=== PATIENT | male | born 1960 | race Caucasian/White ===

== ENCOUNTER 2021-04-02 00:35 | Inpatient (IN) | payer OTHER ==
[~2021-04-02] VITALS: Ht 172.7 cm; Wt 59.6 kg
[2021-04-03 05:01] VITALS: BP 102/68
--- NOTE | 2021-04-03 05:05 | NUR ---
Assumed care of pt from ED at 0440. Pt came to unit from ED via gurney et ambulated to bed with slightly unsteady gait. Pt c/o soreness in right arm but no noticeable discoloration noted to area of pain. Security reports that pt was given injection in ED et may be complaining of pain from the injection sight. Pt calm et cooperative but anxious upon admission to unit. VSWNL. Health assessment with no abnormalities noted at present time. Hospitalist BUSINESS OFFICE ASSISTANT notified of admission to unit. Will notify physician economic analysis director for orders. Pt oriented to room but wanted to sleep so did not orient to unit at this time. ED reports that client became agitated while down in the ED et had to have two injections of Haldol. Pt being admitted from [facility] after being brought to their ED from home with guardian due to increased confusion et agitation from dementia. Needing to be placed into LTC unit. Currently resting in bed with eyes closed. Will continue to monitor per unit protocol.
[2021-04-03 07:45] LABS: CHOLESTEROL 173 mg/dL (<200); HDL CHOLESTEROL 48 mg/dL (>40); LDL CHOLESTEROL 97 mg/dL (<100); TC:HDL 3.6 Ratio (Not establshd); TRIGLYCERIDE 140 mg/dL (<150); VLDL 28 mg/dL (<40)
[2021-04-03 08:50] VITALS: BP 102/68
[2021-04-03 09:44] VITALS: BP 102/68
[2021-04-03 10:08] LABS: ANION GAP 13 mmol/L (7-16); BUN 14 mg/dL (7-18); CALCIUM 8.8 mg/dL (8.5-10.1); CHLORIDE 101 mmol/L (98-107); CO2 27 mmol/L (21-32); GLUCOSE 106 mg/dL (74-106); POTASSIUM 3.3 mmol/L (3.5-5.1); SODIUM 141 mmol/L (136-145)
[2021-04-03 10:58] VITALS: BP 102/68
--- NOTE | 2021-04-03 12:35 | NUR ---
RESUMMED CARE FROM OVERNIGHT SHIFT THIS AM, PATIENT CONFUSED ALERT TO SELF ONLY. PATIENT WAS ASKING WHERE HE WAS I TOLD HIM HE IS IN A HOSPITAL. PATIENT REFUSED HIS AM MEDICATION DR LOPEZ NOTIFIED. PATIENTS ABDOMEN SOFT BOWEL SOUNDS PRESENT; PATIENTS LUNGS CLEAR. PATIENT HAS A ROTTEN BACK MOLAR IN MOUTH WHICH HE IS COMPLAING ABOUT. PATIENT GIVEN TYLENOL 650 MG FOR PAIN PATIENT DENIES SI/HI/AH/VH AT PRESENT. PATIENT DOES TALK WITH OTHER PATIENT AT TIMES, PATIENT MET WITH DR LOPEZ AND ANITRA. PATIENT HAS NOT DISPLAYED ANY BEHAVIORS; WILL CONTINUE TO MONITOR PATIENT FOR SAFETY AND BEHAVIORS.
[2021-04-03 14:42] LABS: HEMATOCRIT 42.9 % (42.0-52.0); HEMOGLOBIN 14.1 gm/dL (14.0-18.0); MCH 27.3 pg (26.0-34.0); MCV 82.8 fL (80.0-100.0); RBC 5.18 mil/uL (4.50-6.00); RDW 13.7 % (10.5-14.5)
--- NOTE | 2021-04-03 15:39 | NUR ---
Meeting with patient, OLAYINKA and Dr. Marr. Patient was confused and had difficulty being directed to the office. Patient reports to not knowing where he is currently. Patient was asked about his daughter. Patient appeared to be confused but did shake his head in agreement once her name, Yumiko, was mentioned. Patient doesn't remember where he was born. He states he had one older brother.
[2021-04-03 19:44] VITALS: BP 106/67
--- NOTE | 2021-04-04 05:10 | NUR ---
Assumed care of pt at 1900. Pt calm et cooperative this shift. Took medications whole without difficulty. Ambulates the halls ad leno with steady gait. VSWNL. Health assessment with no abnormalities noted at present time. Denies SI/HI at present time. Socialized with peers in dayroom watching TV until HS. Currently resting in bed with eyes closed. Will continue to monitor per unit protocol.
[2021-04-04 08:08] LABS: GLYCOHEMOGLOBIN (HGB A1C) 5.8 % (4.8-5.6)
[2021-04-04 10:04] VITALS: BP 116/79
--- NOTE | 2021-04-04 12:19 | NUR ---
RESUMMED CARE FROM OVERNIGHT SHIFT THIS AM PATIENT IN DAY ROOM SITTING QUIET. PATIENT ATE BREAKFAST TOOK MEDICATION WITHOUT INCIDENCE. PATIENT IS ALERT TO SELF ONLY AND IS VERY CONFUSED. HIS DAUGHTER CALLED TO CHECK ON THE PATIENT AND ASKED TO SPEAK TO HER DAD. PATIENT BEGAN TO GET UPSET BECAUSE HE WANTS TO GO WITH DAUGHTER. I EXPLAINED TO DAUGHTER JUST ASK TO TALK WITH THE NURSE FOR UPDATES. DUE TO PATIENT GETTING UPSET PATIENTS DOES NOT UNDERSTAND WHEN YOU ASK HIM ABOUT SI/HI/AH/VH AT PRESENT. PATIENT IS SO CONFUSED WHEN TAKING HIM TO USE THE BATHROOM. PATIENT DID NOT UNDERSTAND HE HAD TO PULL PANTS DOWN TO USE THE BATHROOM. PATIENTS ABDOMEN SOFT BOWEL SOUNDS PRESENT LUNGS CLEAR; PATIENT AT TIMES WANDERS AROUND IN THE DAY ROOM. PATIENT HAS NOT DISPLAYED ANY AGGRESSION WILL CONTINUE TO MONITOR PATIENT FOR SAFETY AND BEHAVIORS.
--- NOTE | 2021-04-04 12:30 | H ---
[facility] [place] [address] HISTORY AND PHYSICAL Name: CHRISTIE BATEMAN Room #: 520B-B ADM IN M.R.#: [id number] Admission: 04/03/21 Attend Phys: Liborio Marr DO Discharge: Date of : 60 Report #: [id number] THIS REPORT FOR: cc: NO FAMILY PHYSICIAN or PCP NO FAMILY PHYSICIAN or PCP Liborio Marr DO ~ DATE OF SERVICE: 04/03/2021 INPATIENT GERIATRIC PSYCHIATRIC EVALUATION ATTENDING PSYCHIATRIST: Liborio Marr DO MEDICAL CONSULTANTS: Rajwinder Gould APRN and Liborio Doyle MD from our Hospitalist Service. REASON FOR ADMISSION: The patient transferred from [facility] for progressive dementia, continued impulsivity and agitation, requiring geriatric psychiatry stabilization. SOURCES OF INFORMATION: Telephone conversation with his court-appointed guardian and conservator who is his daughter, Yumiko Aldana; records from [facility]; records here at [facility] and my chair side interview. CHIEF COMPLAINT: Unspecified. HISTORY OF PRESENT ILLNESS: This is a 61-year-old, appearing disheveled, malnourished male. The patient was transferred from [facility] yesterday. As best I can tell, his date of admission there was 03/31/2021. The patient was brought there due to chronic progressive dementia, unable to be cared for at home. He was referred from his primary care physician's office. The patient was seen by a psychiatrist at [facility], it appears to be a telepsychiatrist, so they could have been seeing them from away. In any event, the patient was talking to himself, responding to voices, playing the TV very loudly. His nurse reports he is active and agitated, so they wanted to get something for him. To the telepsychiatrist, the patient states, "what the hell is going on," he is having a great deal of trouble, hallucinating at times, talking nonsense, oriented to self, not sure where he is, not sure of his medical condition. He stated, "it is the damn dog." According to his daughter, she has documentation of 04/2018 and dementia was diagnosed, but she believes it dates back to 6-7 years. Apparently around 6-7 years ago, he was fired from multiple jobs. Denies smoking, alcohol, marijuana, or recreational drug use history. No hard drugs like cocaine and meth, heroin. born and raised in [place], high school graduate, and , he then had his girlfriend of 24 years who is one who dropped him [facility] [address] [place] [address] HISTORY AND PHYSICAL Name: CHRISTIE BATEMAN Room #: 520B-B ADM IN M.R.#: [id number] Admission: 04/03/21 Attend Phys: Liborio Marr DO Discharge: Date of : 60 Report #: [id number] off at his daughter's around 03/18/2021. He is disabled, retired now. No legal history. No access to firearms. MEDICATIONS AT HOME: Zolpidem, donepezil, memantine, Senna, and docusate. Seems like at [facility], they gave him 10 mg at bedtime of olanzapine and then they added 2.5 mg in the morning for agitation, ADDITIONAL INFORMATION FROM [facility]: SARS-CoV-2 was negative. Toxicology screen was negative. Urine showed small bilirubin, 15 ketones, it is from 03/31. Also on 03/31, sodium 136, potassium 4.3, chloride 102, bicarbonate 27, anion gap 11, BUN 15, creatinine 1.1, GFR 72, glucose 102, calcium 9.0, corrected calcium 9.5, total bilirubin 0.5, AST 30, ALT 59, alkaline phosphatase 88. Total protein 7.8, albumin 3.4. White count 10.8, H and H 14.0 and 42.2, platelet count 375. Absolute neutrophil count was high at 8.1. Acetaminophen negative. Alcohol negative. I actually do not see an EKG from [facility], so I ordered one. I did note a CT head in the ED negative for acute abnormalities. Most likely, they ordered RPR and HIV. Sheila Ignacio considered him incapacitated, looks like she was the resident. I see there are some additional laboratories posted. B12 level was high at 1145. I do not see an HIV, RPR, it says see history, but I do not see the results, but an RPR was nonreactive. I do not think this patient is high enough risk to tram down the formal HIV result and he is so demented that I do not think there would be any type of treatment if a reversible cause was found. B12 level 907. TSH 1.356. Sodium 141. We did repeat labs here at [facility], potassium 3.3, chloride 101, bicarbonate 27, anion gap 13, BUN 14, creatinine 1.0, estimated GFR 76, glucose 106, calcium 8.8, triglycerides 140, cholesterol 173, LDL 97, HDL 48. ADDITIONAL INFORMATION: The patient has an older son named, Diego, works in [employer]. Daughter has requested we take a look at broken molar, I explained to her we do not have hospital dentistry at [facility] so this would have to wait and we can only treat symptoms. . The patient is down 17 pounds from last month. He does not want to shower. Daughter is upset that he has never verbalized how bad it got, "they are not taking me to the doctor regularly." The patient had a hernia in 2021. I am unclear if it was reduced manually or he had a herniorrhaphy. [place] Medicaid pending. No history of previous long-term. He was COVID positive in February. Daughter says [facility] is interested. [facility] have dneied patient. Daughter resides in [place], [place], is a after school program coordinator with a law firm. Christie gets $2143 dollars a month from disability. Born and raised in [place], [place]. Two brothers, one in [facility] is the oldest. The younger brother, Jose Alfredo, is in [place]. The patient worked at a [employer] company. No history of [facility] [address] [place] [address] HISTORY AND PHYSICAL Name: CHRISTIE BATEMAN Room #: 520B-B ADM IN M.R.#: [id number] Admission: 04/03/21 Attend Phys: Liborio Marr, Discharge: Date of : 60 Report #: [id number] history. No history of being subject to physical or sexual abuse. No history of violence. The daughter brought up that the patient has pain in his mouth. He does have a broken lower right molar from my insepction. I explained we do not have a hospital dentist here, we can treat some of the symptoms, but extraction or definitive care will have to be planned after discharge. PHYSICAL EXAMINATION: VITAL SIGNS: Temperature 36.5, pulse 78, respirations 16, BP 102/68. GENERAL: Well-developed, ill-appearing, malnourished, male. MENTAL STATUS EXAMINATION: Well-developed male. Attention and concentration limited. Speech soft, slow. Thought process linear, very limited. Thought content poverty of thought. Denied suicidal or homicidal ideation. No auditory, visual, or tactile hallucinations. Denied hopelessness, helplessness. Memory noted to be impaired, not formally tested. Insight and judgment quite impaired. Fund of knowledge well below normal. Mood and affect is constricted, congruent, diminished range. FORMULATION: A 61-year-old male transferred from [facility] Medical Unit due to need for further stabilization of symptoms of dementia and assistance with placement. PLAN: Admitted by guardian to [facility] to evaluate, stabilize, obtain collateral. At this time, regarding medications, he is on donepezil 10 mg at bedtime, memantine 10 mg p.o. daily. I am going to go ahead and discontinue the donepezil due to his significant weight loss. Keep him on 10 mg of memantine for now. In addition, he is on senna 2 tabs daily, which is fine, otherwise p.r.n. Zofran, Mylanta, Cepacol and acetaminophen, those were PRNs. May go ahead and start him on olanzapine 5 mg p.o. b.i.d. for general impulsivity measures. We will go ahead and start it tonight. We will see how he does the next several days. ESTIMATED LENGTH OF STAY: 10-14 days. STRENGTHS: He has a guardian/conservator and is insured. WEAKNESSES: Advanced dementia, needing placement. [facility] [address] [place] [address] HISTORY AND PHYSICAL Name: CHRISTIE BATEMAN Room #: 520B-B ADM IN M.R.#: [id number] Admission: 04/03/21 Attend Phys: Liborio Marr DO Discharge: Date of : 60 Report #: [id number] Time spent on this case is greater than 60 minutes, greater than 50% of time spent in review of records and coordination of care. <ELECTRONICALLY SIGNED> By: Liborio Marr DO 04/04/21 1230 1210 1246 Liborio Marr DO /nt
--- NOTE | 2021-04-05 05:59 | NUR ---
Assumed care of pt at 1900. Pt calm et cooperative most of shift. Became quite agitated et tearful after phone call with daughter et was very difficult to redirect. Previous shift reported that pt has been increasingly agitated et aggressive following phone calls with family members et that the nurse had told family members that he was doing so et advised that they not call to speak with pt but can get reports on how pt is doing from nursing. Pt had to have PRN IM injection of Haldol for aggressive behavior on previous shift. Took medications without difficulty. Ambulates the halls ad leno with steady gait. VSWNL. Health assessment with no abnormalities noted at present time. Denies SI/HI at present time. Currently resting in bed with eyes closed. Will continue to monitor per unit protocol.
[2021-04-05 09:42] VITALS: BP 108/58
--- NOTE | 2021-04-05 17:11 | NUR ---
ORIENTED TO NAME ONLY. HAS BEEN RESTLESS AND INTRUSIVE MAJORITY OF SHIFT-APPEARS UNABLE TO SIT STILL FOR ANY EXTENDED PERIOD OF TIME AND HAS EATEN POORLY A RESULT OF THIS-STAFF HAVE REDIRECTED HIM TO SIT AT TABLE MULTIPLE TIMES BUT APPEARS UNABLE TOFOLLOW VERBAL COMMANDS.CONVERSATION MOSTLY INCOHERENT-DISORGANIZED. HAS BEEN INCONTINENT OF KIRIT X3 SO FAR TODAY AND DOES CURSE AND ATTEMPT TO GRAB STAFFS ARM AND TWIST WITH INCONTINENT CARE-WHEN TAKEN TO TOILET Q1-2 HOURS WILL ALLOW STAFF TO WALK HIM TO BATHROOM BUT BECOMES AGITATED AND RESISTIVE WHEN STAFF ASK HIM TO PULL DOWN PANTS OR SIT. HAS BEEN ENTERING PEERS ROOOMS AND SO FAR HAS REDIRECTED OUT OF ROOMS WITHOUT PHYSICAL AGGRESSION. EATING POORLY-WILL TAKE 1-2 BITES AT A TIME BEFORE WALKING AWAY AND STATING HE DOESN'T WANT ANYMORE. SPIT OUT WHOLE PILLS SO MEDS CHANGED TO CRUSH AND WILL TAKE IN ICE CREAM
[2021-04-05 20:20] VITALS: BP 108/58
--- NOTE | 2021-04-05 23:57 | NUR ---
PATIENT IS VERY RESTLESS TONIGHT. AT BEGINNING OF SHIFT PATIENT WAS HIGHLY ANXIOUS AND CRYING OFF AND ON. HE RAMBLES WHEN HE TALKS AND DOES NOT MAKE COHERENT CONVERSATION. HE PACES THE HALLS AND WALKS INTO OTHER RESIDENTS ROOMS. ATIVAN ORDER ONE TIME GIVEN AT END OF DAY SHIFT. PATIENT IS INCONTINENT AND DOES NOT GET THE CONCEPT OF VOIDING IN THE TOILET OR URINAL. HE HAS URINATED 2 OR 3 TIMES IN HIS ROOM, ANOTHER RESIDENT'S ROOM AND HIS BATHROOM FLOOR AND HALLWAY. AREAS MOPPED UP AND PATIENT CLEANED AND CHANGED INTO NEW CLOTHES. PATIENT STAYS IN HIS BED FOR A LITTLE BIT AND THEN IS UP AGAIN AND PACING. HIS ANXIETY HAS SEEMED TO CALM SOME AT THIS POINT. PATIENT BACK IN BED. BED IN LOW POSITON AND BED ALARM IS ON. ROUTINE ROUNDS TO ASSESS SAFETY AND STATUS OF PATIENT. MEDS GIVEN IN ICECREAM TONIGHT.
--- NOTE | 2021-04-06 05:22 | NUR ---
PATIENT HAS BEEN UP AND DOWN ALL NIGHT. WANDERING IN ROOM, [place]OMAS WAYS, AND SITTING IN DINING ROOM. EASILY REDIRECTABLE. PATIENT KEEPS REMOVING HIS YELLOW SOCKS AND STAFF KEEP PUTTING BACK ON AND PT TAKES OFF AGAIN. CLOSE SUPERVISION TO MAKE SURE PATIENT STAYS OUT OF OTHER PATIENT'S ROOMS. PATIENT TALKS CONSTANTLY. PT IS SEXUALLY INAPPROPRIATE AND HAS TRIED GROPING AND TOUCHING FEMALE STAFF. CONTINUING TO MONITOR.
--- NOTE | 2021-04-06 06:22 | NUR ---
PT CAME TO NURSE STATING HIS TOOTH WAS HURTING. HE WAS CRYING FOR A FEW SECONDS. RIGHT BACK AMADOR. TYLENOL 650MG PO GIVEN FOR PAIN CRUSHED IN PUDDING. PATIENT DRANK A CUP OF WATER. PATIENT SLEPT 1 HOUR LAST NIGHT. PT PACING IN DAY ROOM.
[2021-04-06 06:28] VITALS: BP 120/86
--- NOTE | 2021-04-06 11:30 | NUR ---
Message left with emergent legal guardian, Yumiko Aldana, to call the unit as soon as she received the message to notify her of patient testing positive for Covid.
[2021-04-06 12:27] VITALS: BP 120/80
--- NOTE | 2021-04-06 13:26 | NUR ---
RESUMMED CARE FROM OVERNIGHT SHIFT THIS AM, PATIENT IN DAY ROOM WANDERING. PATIENT ATE BREAKFAST TOOK MEDICATION WITHOUT INCIDENCE; PATIENT ALERT ORIENTED TO SELF ONLY. PATIENT HAS CONFUSION AND HAS TANGENTIAL THINKING, PATIENT UNABLE TO TELL RADHA ABOUT SI/HI/AH/VH DUE TO CONFUSION. PATIENTS ABDOMEN SOFT BOWEL SOUNDS PRESENT PATIENTS LUNGS CLEAR. PATIENT HAD TO GET AN I AM OF GEODON 20MG FOR KICKING AND HITTING STAFF WHILE GETTING COVID TEST. PATIENT IS RESTING COMFORTABLY WILL CONTINUE TO MONITOR PATIENT FOR SAFETY AND BEHAVIORS.
--- NOTE | 2021-04-06 16:40 | NUR ---
Email received from guardianYumiko, requesting referral for patient be faxed to [facility] ([phone])
[2021-04-06 19:48] VITALS: BP 117/65
[2021-04-06 20:38] VITALS: BP 117/65
--- NOTE | 2021-04-06 20:59 | NUR ---
RESUMMED CARE FROM DAY SHIFT THIS EVENING PATIENT SITTING IN DAY ROOM TALKING TO SELF. PATIENT NOT ABLE TO TELL ME ABOUT SI/HI/AH/VH DUE TO COGNITIVE DO OF BRAIN. PATIENTS ABDOMEN SOFT BOWEL SOUNDS PRESENT PATIENTS LUNGS CLEAR. PATIENT IS VERY CONFUSED AND IS HAVING DELUSIONS HE RAMBLES WHEN SPEAKING AND NOT MAKING SENSE. HIS DAUGHTER CALLED AND THE PATIENT STARTED CRYING AND BECOMING AGITATED. I TOLD DAUGHTER NOT TO CALL AND SPEAK WITH PATIENT IT UPSETS HIM. I STATED TO HER TO CALL AND SPEAK WITH NURSE ABOUT PATIENTS STATUS. PATIENT TOOK MEDICATION CRUSHED IN YOGART PATIENT IS SLEEPING IN LINDSEY CHAIR. WILL CONTINUE TO MONITOR PATIENT FOR SAFETY AND BEHAVIORS.
--- NOTE | 2021-04-07 08:46 | NUR ---
Phone call to patient's daughter, Yumiko Nico OLIVARES
--- NOTE | 2021-04-07 10:09 | NUR ---
Alert and orientated to name only. Denies SI/HI. Rambling, confused speech at times, sometimes coherent. No speech or behavior suggestive of SI/HI. Breath sounds clear. Reg HR auscultated. Color pink with brisk capillary refill and palpable peripheral pulses. No edema noted. Active bowel sounds over soft, flat abdomen. Incontinent of yellow urine and smear of stool. Compliant with meds this AM, given crushed in pudding. Ate rest of pudding when fed. Sitting in recliner with chair alarm placed.
--- NOTE | 2021-04-07 17:40 | NUR ---
MACHINING SUPERVISOR paged MD Marr in regards to a PRN for patient. BRIDGET Lynch asked for order. Order was recieved and placed for a ONETIME 1mg Ativan PO @2770
[2021-04-07 19:35] VITALS: BP 117/65
--- NOTE | 2021-04-08 03:29 | NUR ---
PATIENT CARE WAS RESUMED AT 1900. HE IS AWAKE SITTING AT THE DININIG AREA ON THE RECLINER. HE TOOK HIS MEDS WITH ICE CREAME. DENIES PAINS/SI/AVH/HI. HE IS INCONTINENT OF BOWEL AND BLADDER. HE IS A MAX ASSIST [facility] CARE AND TRANSFER. ROBLES CARE WAS PROVIDED.BED IS LOW, LOCKED AND ALARMED.[id number] CHECK ONGOING.
[2021-04-08 10:08] VITALS: BP 137/74
--- NOTE | 2021-04-08 13:06 | NUR ---
NOTED TO BE SOMULENT THROUGHOUT AM/EARLY PM-AM MEDICATIONS/BREAKFAST NOT GIVEN D/T INABILITY TO SWALLOW IN A SAFE MANNER AT THIS TIME. IS RESPONSIVE TO VERBAL STIMULI AND RESOND BUT RESPONSES ARE SLURRED/MUFFLED D/T CHIN IN CHEST POSTURE. VS STABLE-INCONTINENT CARE PROVIDED
--- NOTE | 2021-04-08 14:02 | NUR ---
AWAKE AND INCREASINGLY RESTLESS STARTING AT APPROX 1330-ASSISTED TO TOILET AND NOTED TO HAVE SIGNIFICANT ATAXIA-STUMBLING AND WOULD HAVE FALLEN SEVERAL TIMES HAD STAFF NOT BEEN AT HIS SIDE-HAS BEEN ATTEMPTING TO GET UP AN WALK ON OWN.02 SAT ON RA 90 PERCENT INITIALLY-DID INCREASE TO 93AFTER MOVING WALKING TO BATHROOM AND BACK.ORIENTED TO NAME ONLY.RESISITIVE WITH INCONTINENT CARE AND BRIEF CHANGE. APPETITE POOR-REQUIRES TOTAL ASSIST WITH ALL ADLS
--- NOTE | 2021-04-08 16:51 | NUR ---
No updates to report on patient. Placement is continuing to be sought.
[2021-04-08 19:22] VITALS: BP 110/79
--- NOTE | 2021-04-08 22:04 | NUR ---
At onset of hotel night auditor pt was sitting in óscar chair in day room. Pt appeared calm at this time. This shift pt was alert and oriented only to self. Pt is confused, delusional, disorganized and hallucinates. Pt's speech is nonsensical and pt cannot answer most questions appropriately. Pt was med compliant with meds mixed in ice cream. Pt spoke with his daughter and his mother over the phone. Pt becomes tearful when speaking with family, but was able to calm down afterwards. Pt does not talk for long as he cannot use the phone appropriately and will sit the phone down while the other person is still talking. Pt stated to this nurse that he wanted to her. Pt made other delusional statements. Pt is unsteady on his feet and is assisted when ambulating and is utilizing a óscar chair while awake in day room. Fall precautions are in place. Will continue to monitor. RN spoke with daughter Yumiko over the phone. Yumiko wanted an updated med list, which RN provided. Yumiko told this RN that pt likes apple juice. Pt ate an entire ice cream, but only drank about 3 ounces of apple juice when offered. Pt would not drink water.
[2021-04-09 09:26] VITALS: BP 135/56
--- NOTE | 2021-04-09 14:39 | NUR ---
Assumed patient at 0700, patient is alert and oriented to person, did not eat much or drink much, but a few bites for breakfast and lunch. Patient is talking to himself. Sat up in the óscar chair most of the day. Taking crush medication in applesauce. Will continous to monitoring.
--- NOTE | 2021-04-09 16:04 | NUR ---
Phone call to [facility] for status update - Voice message.
--- NOTE | 2021-04-09 16:25 | NUR ---
Phone call to Yumiko miranda - Voice message
[2021-04-09 19:50] VITALS: BP 135/56
--- NOTE | 2021-04-10 00:28 | NUR ---
[facility] HE WAS SITTING AT THE DINING AREA ON THE TABLE. HE IS AWAKE AND CONFUSED, LUNGS ARE CLEAR AND BOWEL SOUND ACTIVE X 4 QUADS. HE IS INCONTINENT OF BOWEL AND BLADDER. DENIES PAINS/SI/AVH/HI. HE TOOK HIS MEDS WHOLE. AMBULATES WITH LINDSEY-CHAIR. MAX ASSIST WITH ROBLES CARE. BED IS LOW, LOCKED AND ALARMED. YELLOW TOPS AND SOCKS ARE ON, Q12 MINUTES CHECK ONGONIG.
[2021-04-10 09:38] VITALS: BP 101/56
--- NOTE | 2021-04-10 12:32 | NUR ---
REQUIRES TOTAL CARE WITH ALL ADLS-ATE WELL AT BREAKFAST CONSUMING 50-75 PERCENT -REQUIRED MULTIPLE REAPPROACHES -REATTTEMPTS WOULD STOP OPENING MOUTH AFTER 1-2 BITES. GAIT VERY UNSTEADY THIS RN ATTEMPTED TO AMBULATE FROM HALLWAY TO ROOM TO USE TOILET AND WAS NOTED TO BE FALLING BACKWARD OR TO SIDE-KEEPING LEGS BENT.ORIENTED TO NAME ONLY-APPEARS TO BE HAVING VISUAL HALLUCINATIONS STATING AT LUNCH HE SAW A BUG ON THE FLOOR AND IT IS UNDER HIS CHAIR NOW.RESTLESS,ATTEMPTING TO GET UP SEVERALTIMES ON OWN.RESISTIVE WITH BRIEF CHANGE -REQUIRES 3 STAFF TO ASSIST
--- NOTE | 2021-04-10 15:01 | NUR ---
INCREASED RESTLESSNESS STARTING APPROX 1430- RESTLESS ,MULTIPLE ATTEMPTS TO STAND ON OWN. CONVERSATION FRAGMENTED-MOSTLY INCOHERENT. ATE POORLY AT LUNCH BUT DID TAKE ICE CREAM AND PUDDING AT 1400 WITH 1300/1500 MEDICATIONS. NOTED TO BE GRIMACING AND RUBBING BACK IF IN PAIN-WHEN ASKED STATES YES-UNABLE TO RATE. TYLENOL 2 TABS PO PRN AT 1300 WITH NO NOTED RESPONCE-HAS BEEN TOILET Q 1-2 AND IS RESISITVE EVERY TIME WITH PANTS BEING PULLED DOWN AND SITTING ON TOILET. BECOMES ANGRY WITH STAFF "WHY ARE DOING THAT" AND STRIKES OUT OR PULLS AWAY. HAS BEEN INCONTINENT OF STOOL AND URINE X3 SO FAR TODAY. IS NOTED TO HAVE SUPERFICIAL SCRATCH TO BUTTOCKS AND SLIGHT REDNESS TO SURROUNDING TISSUE HAS BEEN SCRATCHING AREA WITH FINGERNAILS-AREA CLEANSED WITH MUCH RESISTANCE AND BARRIER CREAM APPLIED. AT 1500 BEGINS TO CRY-UNABLE TO STATE WHY-PLACED IN BED-POSITIONED FOR COMFORT AND RN AT BEDSIDE APPEARS COMFORTED TO HAVE SOMEONE WITH HIM-RESTLESS TOSSING IN BED FOR 30-40 MINUTES BEFORE FALLING ASLEEPP. BED ALARM ON
--- NOTE | 2021-04-10 16:40 | NUR ---
Phone communication with Yumiko. Yumiko reports guardianship was granted at the court hearing on . Yumiko has attempted to look for placement for the patient. She reports [facility] did not receive the referral. She provided the phone number for [facility] ([phone]). The worker will refax the referral. Yumiko will also send the listing of homes that she has contacted for placement.
--- NOTE | 2021-04-10 18:42 | NUR ---
DID REST FROM APPROX 1530/1700 IN BED-DID WAKEN WITH VERBAL QUING AND ATE A FEW BITES OF SUPPER-INCONTIENT CARE PROVIDED AND WAS RESISTIVE WITH THIS GRABBING STAFFS WRIST AND PUSHING IT BACK,SCRATCHED STAFFS HAND-IS NOTED TO HAVE SMALL EXCORIATED AREA TO MIDLINE COCYX-BARRIER CREAM APPLIED . IS TEARFUL CRYING OUT FOR MOTHER AND FATHER-HALLUCINATING SEEING [employer] [employer]-CARRYING ON CONVERSATION WITH UNSEEN OTHERS. INCREASED TEARFULNESS AND ANXIETY WHEN STAFF LEAVE BEDSIDE
[2021-04-10 19:15] VITALS: BP 137/94
--- NOTE | 2021-04-11 00:33 | NUR ---
PATIENT CARE WAS RESUMED AT 1900. HE WAS SITTING IN THE DAY AREA ON A RECLINER. HE IS CONFUSSED. HE DENIES PAINS,SI/AVH/HI, HE IS INCONTINENT OF BOWEL AND BLADDER.MAX ASSIST WITH CARE. ABLE TO VERBALIZE SOME NEED. HE TOOK HIS MEDS WHOLE. BED IS LOW, LOCKED AND ALARMED. [id number] CHECK ONGOING.
[2021-04-11 09:11] VITALS: BP 102/69
--- NOTE | 2021-04-11 11:39 | NUR ---
RESUMMED CARE FROM OVERNIGHT SHIFT THIS AM, PATIENT IN ROOM ASLEEP LYING QUIET. PATIENT DID NOT WANT TO GET UP FOR BREAKFAST SO I ALLOWED HIM TO SLEEP UNTIL 0950. PATIENT TOOK MEDICATION CRUSHED IN PUDDING, PATIENT UNABLE TO TELL ME ABOUT SI/HI/AH/VH DUE TO COGNITIVE DO. PATIENT VERY CONFUSED AND DELUSIONAL TALKING ABOUT SEEING A MAN OVER THERE IN ROOM. PATIENTS ABDOMEN SOFT BOWEL SOUNDS PRESENT. PATIENTS LUNGS CLEAR PATIENT SITTING IN DAY ROOM QUIET RESTLESS AT TIMES. WILL CONTINUE TO MONITOR PATIENT FOR SAFETY AND BEHAVIORS.
[2021-04-11 12:30] LABS: ABSOLUTE NEUTROPHILS 3.6 thou/uL (1.4-8.2); BASOPHILS 0.5 % (0.0-2.0); HEMATOCRIT 44.9 % (42.0-52.0); HEMOGLOBIN 15.1 gm/dL (14.0-18.0); LYMPHOCYTES 24.1 % (24.0-44.0); MCHC 33.5 g/dL (28.0-37.0); MCV 83.6 fL (80.0-100.0); PLATELET COUNT 260 thou/uL (150-400); POLYS 63.4 % (36.0-66.0); RBC 5.38 mil/uL (4.50-6.00); RDW 14.7 % (10.5-14.5); WBC 5.7 thou/uL (4.0-11.0)
[2021-04-11 12:47] LABS: ALBUMIN 3.2 g/dL (3.4-5.0); CALCIUM 9.3 mg/dL (8.5-10.1); MAGNESIUM 2.3 mg/dL (1.8-2.4); POTASSIUM 3.5 mmol/L (3.5-5.1); TOTAL BILIRUBIN 0.4 mg/dL (0.2-1.0)
--- NOTE | 2021-04-11 16:14 | NUR ---
Pt. increasingly restless, attempting to get out of chair. Attempted to let pt ambulate using walker but he was resistant. Ambulated pt to his bathroom with two staff on each side. Then he was resistant to sitting on toilet. Incontinent of large amt dark yellow urine per brief. Brief changed and placed in WC. Brought back to dining room where he is sitting in recliner.
[2021-04-11 19:33] VITALS: BP 105/66
--- NOTE | 2021-04-11 23:51 | NUR ---
At onset of shift nurse manager pt was sitting in óscar chair in day room. This shift pt was alert and oriented only to self. Pt was compliant with medication crushed in yogurt and cooperative with enoxaparin injection. Pt spoke to his daughter over the phone. Pt does become tearful when talking to his daughter and tells her to come get him. Pt is disorganized, with flight of ideas and is nonsensical. RN held phone to pt's ear for phone call as pt is too disorganized the hold phone himself. Pt was mostly calm during the shift. Pt is a high fall risk. Fall precautions are in place. Will continue to monitor.
[2021-04-12 08:38] VITALS: BP 105/50
[2021-04-12 09:17] VITALS: BP 105/50
--- NOTE | 2021-04-12 14:01 | NUR ---
Assumed pt care this morning from overnight shift. Pt presented alert and oriented to self only, and presented slightly drowsy during this time. Pt unable to answer assessment questions when asked, and would start to ask questions, but could not be heard clearly. Pt assisted with breakfast and lunch, as pt initially did not want to eat without assistance, but was able to eat portions of both meals without issue. Pt took medications crushed in pudding, and was compliant with all. Pt repositioned in gerichair during this time for comfort. Lung sounds clear. Bowel sounds active. No further concerns at this time.
[2021-04-12 19:19] VITALS: BP 125/80
--- NOTE | 2021-04-12 23:36 | NUR ---
At onset of rn night pt was laying in bed awake. This shift pt was alert and oriented only to self. During assessment pt grabbed nurses hand and talked, but speech was nonsensical. Pt was med compliant with medication mixed in applesauce. Pt ate a few extra bites of applesauce but did not eat the entire cup. Pt has an enoxaparin injection at bedtime. Pt is too disorganized to keep his hands away from injection site. SUPERVISOR EDUCATION distracted pt and talked to pt while holding his hands so RN could administer injection safely. Pt did not fight and tolerated injection well. Pt does not answer psych questions appropriately. Pt has difficulty expressing needs. Pt does grimace at times and can become tearful, but calms down when RN comforts pt. Pt fell asleep after med pass. Pt's fall risk score is only 40, but pt is week and impulsive. Pt is being treated like a high fall risk. Fall precautions are in place. Will continue to monitor.
[2021-04-13 08:35] VITALS: BP 115/79
[2021-04-13 09:25] VITALS: BP 115/79
--- NOTE | 2021-04-13 16:47 | NUR ---
Email received from Yumiko with guardianship paperwork.
--- NOTE | 2021-04-13 17:04 | NUR ---
Assumed pt care this am from overnight shift. Pt presented alert and oriented to self only, and was restless, trying to get out of chair at this time. Pt was repositioned for comfort during this time. Pt unable to answer assessment questions, as pt unable to verbalize any concerns. Pt did not voice any suicidal or homicidal thoughts during assessment. Pt noted to speak to self, and mutter- pt asked for mother during shift, and was noted to reach out grabbing staff despite redirection. Pt did state that he "hurt" when moving, so was given tylenol for pain. Pt noted to move less after administration of medication and did not voice further pain. Pt mother called and was notified of pt status at this time. Voiced thanks to staff. Pt took all medications without concerns- afternoon dose of zyprexa held as pt was sleeping. No further concerns at this time.
[2021-04-13 19:25] VITALS: BP 105/71
[2021-04-13 19:47] VITALS: BP 105/71
--- NOTE | 2021-04-14 04:30 | NUR ---
[facility] CARE WAS RESUMED AT 1900. HE IS AWAKE SITTING IN THE DAY AREA. LUNGS ARE CLEAR BS ACTIVE X Q QUAD. HE IS INCONTINENT OF BOWEL AND BLADDER. HE IS ABLE TO VERBALIZE HIS PAINS. DENIES PAINS/SI/AVH/HI. BED IS LOW, LOCKED AND ALARMED.
[2021-04-14 07:00] VITALS: BP 106/49
[2021-04-14 09:41] VITALS: BP 106/68
--- NOTE | 2021-04-14 10:25 | NUR ---
RESUMMED CARE FROM OVERNIHT SHIFT THIS AM PATIENT IN DAY ROOM ASLEEP IN LINDSEY CHAIR. PATIENT ALERT TO SELF ONLY PATIENT ATE BREAKFAST WITH ASSISTANCE TOOK MEDICATION CRUSHED IN YOGART. PATIENT UNABLE TO TELL ME ABOUT HIS NEEDS OR ABOUT SI/HI/AH/VH AT PRESENT. PATIENTS ABDOMEN SOFT BOWEL SOUNDS PRESENT PATIENTS LUNGS CLEAR. PATIENT IS SLEEPING QUIETLY IN DAY ROOM PATIENT DOES NOT INTERACT WITH OTHERS CONFUSED. WILL CONTINUE TO MONITORS PATIENT FOR SAFETY AND BEHAVIORS.
--- NOTE | 2021-04-14 12:08 | NUR ---
Email sent to Yumiko stating OLAYINKA has not heard from [facility] regarding scheduling virtual assessment. OLAYINKA further stated that the person Yumiko has been texting, Glenny Graham, is the person the OLAYINKA needs to talk to. Yumiko provided the [facility] - [phone].
[2021-04-14 18:54] VITALS: BP 103/88
[2021-04-14 22:22] VITALS: BP 103/88
--- NOTE | 2021-04-14 23:52 | NUR ---
PATIENT CARE WAS RESUMED AT 1900. HE WAS AT THE DININIG AREA SITTING AT THE TABLE. HE IS CONFUSED. AMBULATES WITH LINDSEY CHAIR. LUNGS ARE CLEAR, BS ACTIVE X4 QUAD.HE TOOK HIS MEDS CRUSHED IN ICE CREAME. ABD IS SOFT, NONE TENDER. HE IS A MAX ASIST WITH CARE AND TRANSFER. HE DENIES PAINS/AVH/SI/HI. CONTINUE CARE.
[2021-04-15 10:47] VITALS: BP 94/52
--- NOTE | 2021-04-15 11:23 | NUR ---
PATIENT HAS BEEN UP IN GERICHAIR, AND OUT IN DAYROOM. MORNING MEDICATION GIVEN CRUSHED IN APPLE SOURCE. PATIENT HAD BREAKFAST WITH ASSIST OF STAFF, HE IS FORGETFUL, AND CONFUSED. LCTA, RESP EVEN/UNLABORED, NO SOA/CYANOSIS NOTED. BS+X4, ABD SOFT, NON-TENDER TO TOUCH. PATIENT IS NOT ABLE TO APPROPRIATELY RESPOND TO ASSESSMENT QUESTIONS DUE TO COGNITIVE IMPAIRMENT. NO AGGRESSION, OR IRRITABLE BEHAVIOR NOTED. NO SIGN OF PAIN NOTED. PATIENT TOILETED NEEDED, AFFECT IS FLAT/BLUNTED, MOOD IS DEPRESSED. NO SIGN OF ACUTE DISTRESS NOTED AT THIS TIME, WILL MONITOR FOR SAFETY.
--- NOTE | 2021-04-15 14:39 | NUR ---
Email sent to Yumiko with update stating Glenny from [facility] reported to not receiving the fax with the updates. The SW emailed the updates along with the confirmation page showing the fax was sent. The SW followed up with an email this morning requesting to schedule the virtual assessment.
[2021-04-15 19:30] VITALS: BP 94/52
--- NOTE | 2021-04-15 20:18 | NUR ---
Provided update to DPOA and daughterYumiko at this time about client status. Gave phone to pt and assisted pt with phone call with daughter. Pt expressed happiness, jokingly calling daughter a "colin dong" and smiling at this time.
--- NOTE | 2021-04-16 02:34 | NUR ---
PATIENT CARE WAS RESUMED AT 1900. HE WAS SITTING AT THE DINING AREA ON A CHAIR. HE IS CONFUSED BUT SPOKE QITH HIS DAUGHTER WITH SOME GOOD SENSE. HE IS CONTIENT OF BOWEL AND BLADDER. LUNGS ARE CLEAR ABD IS SOFT AND NONE TENDER. HE TOOK HIS MEDS CRUSHED WITH ICE CREAME. YELLOW TOP AND SOCKS ARE ON. ALARMS IN PLACE CONTINUE CARE.
[2021-04-16 07:41] VITALS: BP 100/66
[2021-04-16 09:49] VITALS: BP 100/66
--- NOTE | 2021-04-16 11:29 | NUR ---
RESUMMED CARE FROM OVERNIGHT SHIFT THIS AM, PATIENT SITTING IN DAY ROOM QUIET. PATIENT APPEARS LETHARGIC ALERT TO SELF ONLY PATIENT INABLE TO COMMUNICATE NEEDS. PATIENT CANNOT TELL ME ABOUT SI/HI/AH/VH AT PREESENT DUE TO DEMENTIA. PATIENT ATE YOGART FOR BREAKFAST NOT INTERESTED IN EATING I CRUSHED PATIENTS MEDICATION AND GAVE IT TO HIM IN YOGART. PATIENTS ABDOMEN SOFT BOWEL SOUNDS PRESENT. PATIENTS LUNGS CLEAR PATIENT SLEEPS A LOT DURING SHIFT; WILL CONTINUE TO MONITOR PATIENT SAFETY AND BEHAVIORS.
--- NOTE | 2021-04-16 12:17 | NUR ---
Email received from [facility] with additional locations for referrals.
[2021-04-16 19:50] VITALS: BP 123/75
--- NOTE | 2021-04-17 05:01 | NUR ---
Assumed care of pt at 1900. Pt calm et cooperative this shift. Took medications crushed in pudding without difficulty. Ambulates with assistance of gerichair. Socialized with peers in dayroom watching TV until HS. VSWNL. Health assessment with no abnormalities noted this shift. Unable to assess SI/HI due to cognitive deficit but does not demonstrate any acute emotional distress at present time. Currently resting in bed with eyes closed. Will continue to monitor per unit protocol.
[2021-04-17 09:48] VITALS: BP 107/77
--- NOTE | 2021-04-17 11:25 | NUR ---
Sleeping soundly this AM. Orientated to name only but did respond to Good Morning with "Good morning." No response to questions about SI/HI, no speech/behavior suggestive of SI/HI. Able to stand with significant support and take several steps to recliner. Gait unsteady. Breath sounds clear. Reg HR auscultated. Color pink with brisk capillary refill and palpable peripheral pulses. No edema noted. Active bowel sounds over soft, flat abdomen. Takes food/fluids only when fed. Incontinent of joey urine per brief and pad. Currently sitting at table in day room in recliner.
--- NOTE | 2021-04-17 13:22 | NUR ---
[facility] declined the Pt.
--- NOTE | 2021-04-17 16:57 | NUR ---
Phone call to Glenny Graham of [facility]. SW asked if arrangements could be made for patient to transition to the facility on Tuesday. Glenny reported they had not received the updated information. The SW will email that information. Glenny reported that once received, a determination can be made if the patient would be able to be moved on Tuesday. The SW did inform Glenny that the doctor had gone back and forth with the patient needing hospice and the patient having good days and bad days.
[2021-04-17 19:51] VITALS: BP 111/67
--- NOTE | 2021-04-18 05:41 | NUR ---
Assumed care of pt at 1900. Pt calm et cooperative this shift but was very emotional et tearful at times during the shift. Took medications crushed in pudding without difficulty. Ambulates with assistance of a gerichair. VSWNL. Health assessment with no abnormalities noted this shift. Unable to assess SI/HI due to cognitive deficit but does not demonstrate any symptoms of acute emotional distress at present time. Currently resting in bed with eyes closed. Will continue to monitor per unit protocol.
[2021-04-18 10:42] VITALS: BP 98/62
--- NOTE | 2021-04-18 10:51 | NUR ---
Phone message received from Sheela of [facility] ([phone]) requesting phone number for the patient's daughter. The SW called and left a voice message with this information.
--- NOTE | 2021-04-18 11:33 | NUR ---
Drowsy this AM but more awake at breakfast. Alerts to name. No response to questions about SI/HI, no speech/behavior suggestive of SI/HI. Breath sounds clear. Reg HR auscultated. Color pink with brisk capillary refill and palpable peripheral pulses. No s/o edema. Active bowel sounds over soft, flat abdomen. Sleeping in chair most of AM without s/o distress. Alert at times with confused, aggressive speech.
--- NOTE | 2021-04-18 13:22 | NUR ---
Check in with patient. Patient was seated in Keeley-Chair in dayroom. Patient was attempting move legs over the arm of the chair. Patient told SW he was glad to see the SW as he didn't know anyone around him. Patient became emotional and started crying.
[2021-04-18 20:02] VITALS: BP 128/71
--- NOTE | 2021-04-19 05:18 | NUR ---
Assumed care of pt at 1900. Pt calm et cooperative this shift. Took medications crushed in pudding without difficulty. Ambulates with assistance of gerichair this shift. Socialized with peers in dayroom watching TV until HS. VSWNL. Health assessment with no abnormalities noted this shift. Unable to assess SI/HI due to cognitive deficit but does not demonstrate any symptoms of acute emotional distress at present time. Currently resting in bed with eyes closed. Will continue to monitor per unit protocol.
[2021-04-19 08:50] VITALS: BP 82/56
[2021-04-19 08:54] VITALS: BP 102/68
--- NOTE | 2021-04-19 10:50 | NUR ---
RESUMMED CARE FROM OVERNIGHT SHIFT THIS AM, PATIENT SITTING IN DAY ROOM ASLEEP. WE WOKE PATIENT UP TO EAT BREAKFAST HE ATE 60% OF BREAKFAST TOOK MEDICATION CRUSHED IN CREAM OF WHEAT. PATIENT UNABLE TO VOICE HIS NEEDS TO STAFF. PATIENT HAS DEMENTIA AND HIS COGNITIVE ABILITIES IS IMPAIRED. PATIENTS ABDOMEN SOFT BOWEL SOUNDS PRESENT. PATIENTS LUNGS CLEAR PATIENT LETHARGIC AND SLEEPING A LOT. WILL CONTINUE TO MONITOR PATIENT FOR SAFETY AND BEHAVIORS.
--- NOTE | 2021-04-19 11:58 | NUR ---
MILL ATTENDANT WEEKLY NOTE---PATIENT APPEARS TO BE ALWAYS ASLEEP IN THE [facility] AREA. HE WAKES UP PERIODICALLY BUT PROVIDES NO PARTICIPATIONS FOR GROUPS.
[2021-04-19 19:35] VITALS: BP 102/68
--- NOTE | 2021-04-19 23:33 | NUR ---
PATINET CARE WAS RESUMED AT 1900. HE WAS AT THE DININIG AREA AND ABLE TO VERBALIZE SOME CARE WHEN ASKED. HE DENIES PAINS/SI/AVH/HI.HE IS A MAX ASIT WITH CARE INCONTINIET OF BOWEL AND BLADDER. HE SPOKE WITH DAUGHTER BRIEFLY BUT UNABLE TO HOLD UP A COMVERSATION. MEDS WERE CREUSHED IN ICE CREAME AND HE WAS TRANSFERED TO BED. BED IS LOW, LOCKED AND ALARMED. HE REFUSED TO USE THE BATHROOM OR BED SIDE COMODE. [id number] CHECK ONGOING. CONTINUE TO MONITOR.
[2021-04-20 08:00] VITALS: BP 127/71
--- NOTE | 2021-04-20 12:28 | NUR ---
PT ALERT TO SELF ONLY. PT DID NOT ANSWER ASSESSMENT QUESTIONS. LITTLE INTERACTION. WITH STAFF AND PEERS. PT TOLERATES MEDS AND MEALS. WILL CONTINUE TO MONITOR.
--- NOTE | 2021-04-20 16:38 | NUR ---
Phone call to Glenny Graham from [facility]. Glenny reported that the notes for the patient looked good and she doesn't see why he would not be able to be accepted. Glenny reported she would forward to the nurse and call back with a response.
[2021-04-20 20:19] VITALS: BP 114/69
--- NOTE | 2021-04-20 21:56 | NUR ---
ASSUMED PT CARE THIS PM. PT IS A LITTLE DROWSY IN THE DAY ROOM IN A LINDSEY CHAIR. MEDS WERE GIVEN PER EMAR ORDERS WITH NO RESISTANCE. NO VISIBLE SIGN OF DISTRESS WAS NOTED. FALL PRECAUTIONS IN PLACE. WILL CONTINUE TO MONITOR.
== END 2021-04-21 | DRG 57 ==
LOC: SBH
PROVIDERS: Hospitalist; Internal Medicine; ADMIT Psychiatry & Neurology Psychiatry; ATTEND Psychiatry & Neurology Psychiatry
DX: G30.9 Alzheimer's disease, unspecified (principal); F02.81 Dementia in other diseases classified elsewhere, unspecified severity, with behavioral disturbance; F01.51 Vascular dementia, unspecified severity, with behavioral disturbance; Z86.16 Personal history of COVID-19; E87.6 Hypokalemia; Z20.822 Contact with and (suspected) exposure to COVID-19; Z68.20 Body mass index [BMI] 20.0-20.9, adult; K02.9 Dental caries, unspecified; Z88.8 Allergy status to other drugs, medicaments and biological substances
CPT/HCPCS: 10880

== ENCOUNTER → 2021-04-03 | Emergency (ER) | payer OTHER ==
--- NOTE | ~2021-04-03 | EMS ---
[facility] [address] [place] [address] EMS Patient Care Report Name: CHRISTIE BATEMAN Room #: REG Darnell#: [id number] Admission: 04/03/21 Attend Phys: Discharge: Date of : 60 Report #: [id number] THIS REPORT FOR: //name// Report Transmitted: 04/06/2021 13:05 EMS Care Summary [place], [place]/[facility] Incident [id number] @ 04/02/2021 23:24 Incident Location [address] [place] [address] [id number] Patient CHRISTIE BATEMAN Male, 61 Years 1960 Patient Address [address] [place] [address] Patient History Dementia, Patient Allergies No known allergies, Patient Medications Olanzapine, Chief Complaint Dementia Disposition Transported No Lights/[place] Dispatch Reason Transfer/Interfacility/Palliative Care Transported To [facility] Narrative Upon arrival to scene nursing staff at [facility] informed us that the PT needed transferred to [facility]. PT was brought into the hospital by family because he has severe dementia and they can no longer take care of him. PT was able to walk to the cot. Once in the ambulance vital signs were monitored and PCR was [facility] [address] [place] [address] EMS Patient Care Report Name: CHRISTIE BATEMAN Room #: REG SCOUT Patrick#: [id number] Admission: 04/03/21 Attend Phys: Discharge: Date of : 60 Report #: [id number] [facility] prior to our arrival. Upon arrival the PT still had a GCS of 14 but this was normal for him. Initial Vitals @23:56P: 89,R: 20,BP: 138/65,Pain: 0/10,GCS: 14,SpO2: 99,Revised Trauma: 12, Assessments @23:48MENTAL:Confused,SKIN:HEENT:Head/Face: No Abnormalities,Neck/Airway: No Abnormalities,LUNG SOUNDS:General: No Abnormalities,ABDOMEN:General: No Abnormalities,PELVIS//GI:No Abnormalities,EXTREMITIES:Left Arm: No Abnormalities,Right Arm: No Abnormalities,Left Leg: No Abnormalities,Right Leg: No Abnormalities,PULSE:Radial: 2+ Normal,NEURO:No Abnormalities, Impression Confusion/Delirium Procedures @23:48 ALS Assessment Response: UnchangedSucceeded Timeline 23:20,Call Received 23:20,Dispatch Notified 23:24,Dispatched 23:24,En Route 23:45,On Scene 23:47,At Patient 23:48,ALS Assessment,Response: UnchangedSucceeded, 23:51,Depart Scene 23:56,BP: 138/65 M,PULSE: 89,RR: 20 R,SPO2: 99 Ox,ETCO2: ,BG: ,PAIN: 0,GCS: 14, 00:08,At Destination 00:22,Call Closed Disclaimer v1.1 Copyright 2021 [employer] This EMS Care Summary contains data elements from the applicable legal record (which may be displayed differently). It is designed to provide pertinent information for the following purposes: continuity of care, clinical quality, and state data reporting. The complete legal record is available to ED staff and administrators of the receiving hospital in [facility]'s Patient Tracker. All data is provided "as is."
== END ==
LOC: ER 00:14
PROVIDERS: Emergency Medicine
DX: F03.90 Unspecified dementia, unspecified severity, without behavioral disturbance, psychotic disturbance, mood disturbance, and anxiety (principal); Z20.822 Contact with and (suspected) exposure to COVID-19